=== PATIENT | female | born 1945 | race Caucasian/White ===

== ENCOUNTER 2016-06-09 10:29 | Day surgery (SDC) | payer MEDICARE ==
[2016-06-09] MEDS ORDERED: LACTATED RINGERS 500 ML IV ONE (10:38)
[2016-06-09] MEDS ORDERED: TROPICAMIDE 1% OPHTH 2 ML DROPS OPTH ONE (10:50)
[2016-06-09] MEDS ORDERED: KETOROLAC 0.45% OPHTH DROPS OPTH ONE (10:50)
[2016-06-09] MEDS ORDERED: CYCLOPENTOLATE 1% OPHTH DROPS 2 ML OPTH ONE (10:50)
[2016-06-09] MEDS ORDERED: MIDAZOLAM 2 MG/2 ML VIAL IVP ONE (11:45)
[2016-06-09] MEDS ORDERED: PROPARACAINE 0.5% OPHTH DROPS 15 ML OPTH ONE (11:51)
[2016-06-09] MEDS ORDERED: BRIMONIDINE 0.2% OPHTH DROPS 5 ML OPTH ONE (11:51)
[2016-06-09] MEDS ORDERED: levoFLOXacin 0.5% OPHTH DROPS 5 ML OPTH ONE (11:51)
[2016-06-09] MEDS ORDERED: EPINEPHrine 1 MG/ML AMP IO ONE (11:51)
[2016-06-09] MEDS ORDERED: CHONDR SULF/HYALURONATE SYRINGE IO ONE (11:51)
[2016-06-09] MEDS ORDERED: BSS/LIDOCAINE/EPINEPHRINE 1 ML SYRINGE IO ONE (11:52)
== END 2016-06-09 10:30 | disposition home or self-care (01) ==
PROC: 08RJ3JZ Replacement of Right Lens with Synthetic Substitute, Percutaneous Approach (ICD-10-PCS; principal; 2016-06-09 11:35)
DX: H25.11 Age-related nuclear cataract, right eye (principal); Z87.891 Personal history of nicotine dependence
CPT/HCPCS: 66984; V2632